=== PATIENT | female | born 1940 | race Caucasian/White ===

== ENCOUNTER 2019-11-06 09:31 | Inpatient (IN) | payer MEDICARE ==
[~2019-11-06] VITALS: Ht 160 cm; Wt 92.1 kg
[~2019-11-06 09:31] MED LIST: ADLT ASA LOW81 MG PO; AMOXICILLIN875 MG OR; AMOXICILLIN875 MG PO; METFORMIN500 MG PO; MULTI VIT PO; OS-CAL 500500 M1 OR; TRILIPIX135 MG OR
[2019-11-06] MEDS ORDERED: JANUVIA100 MG PO (10:58)
[2019-11-06] MEDS ORDERED: METOPROLOL TART50 MG PO (10:58)
[2019-11-06] MEDS ORDERED: LEVOTHYROXIN50 MC1 PO (10:58)
[2019-11-06] MEDS ORDERED: DICYCLOMINE20 MG PO (11:01)
[2019-11-06] MEDS ORDERED: FISH OIL1 CAP PO (11:01)
[2019-11-13] VITALS (9 sets, daily range): BP systolic 110–159; BP diastolic 53–74
[2019-11-13] MEDS ORDERED: CIPROFLOXACN500 MG PO (10:20)
[2019-11-14 03:37] VITALS: BP 104/62
[2019-11-14 06:13] LABS: HEMATOCRIT 38.4 % (37.0-47.0); HEMOGLOBIN 12.8 g/dl (12.0-16.0); MEAN CELL VOLUME 95.5 fL CALC (80.0-100.0); MEAN CORPUSCULAR HGB 31.8 pG CALC (26.0-32.0); MEAN CORPUSCULAR HGB CONC 33.3 g/L CALC (32.0-36.0); RED BLOOD COUNT 4.02 mill/uL (4.20-5.60); RED CELL DISTRI WIDTH 11.9 % (11.5-15.5)
[2019-11-14 06:27] LABS: ANION GAP 11 (6-22 (CALC)); BUN 13 mg/dL (8-23); BUN/CREATININE RATIO 32 (12-20 (CALC)); CARBON DIOXIDE 25 mmol/l (22-30); CHLORIDE 104 mmol/l (95-108); CREATININE 0.4 mg/dL (0.5-1.0); GFR > 60 ML/MIN (>=60 (CALC)); GFR FOR AFR.AMER. > 60 ML/MIN (>=60 (CALC)); POTASSIUM 3.9 mmol/l (3.5-5.1); SODIUM 136 mmol/l (137-146)
[2019-11-14 07:40] VITALS: BP 106/62
[2019-11-14 10:30] VITALS: BP 97/56
[2019-11-14 14:35] VITALS: BP 109/67
[2019-11-14 18:42] VITALS: BP 122/53
[2019-11-14 23:39] VITALS: BP 119/44
[2019-11-15 03:30] VITALS: BP 101/32
[2019-11-15 06:48] LABS: HEMATOCRIT 35.9 % (37.0-47.0); HEMOGLOBIN 11.8 g/dl (12.0-16.0); MEAN CELL VOLUME 94.7 fL CALC (80.0-100.0); MEAN CORPUSCULAR HGB 31.1 pG CALC (26.0-32.0); MEAN CORPUSCULAR HGB CONC 32.9 g/L CALC (32.0-36.0); RED BLOOD COUNT 3.79 mill/uL (4.20-5.60)
[2019-11-15 07:10] LABS: ANION GAP 10 (6-22 (CALC)); BUN 12 mg/dL (8-23); BUN/CREATININE RATIO 27 (12-20 (CALC)); CARBON DIOXIDE 25 mmol/l (22-30); CHLORIDE 104 mmol/l (95-108); CREATININE 0.5 mg/dL (0.5-1.0); GFR > 60 ML/MIN (>=60 (CALC)); GFR FOR AFR.AMER. > 60 ML/MIN (>=60 (CALC)); MAGNESIUM 1.5 mg/dL (1.6-2.3); POTASSIUM 3.8 mmol/l (3.5-5.1); SODIUM 135 mmol/l (137-146)
[2019-11-15 08:49] VITALS: BP 118/73
== END 2019-11-15 16:10 | disposition home health service (06) | DRG 470 ==
LOC: MS2 11-13 08:33 → OR 11-13 10:00 → MS2 11-15 16:10
PROVIDERS: Internal Medicine; Nurse Practitioner Family; ADMIT Orthopaedic Surgery; ATTEND Orthopaedic Surgery
PROC: 0SRD0J9 Replacement of Left Knee Joint with Synthetic Substitute, Cemented, Open Approach (ICD-10-PCS; principal; 2019-11-13)
DX: M17.12 Unilateral primary osteoarthritis, left knee (principal); N39.0 Urinary tract infection, site not specified; I10 Essential (primary) hypertension; E11.9 Type 2 diabetes mellitus without complications; E78.5 Hyperlipidemia, unspecified; E03.9 Hypothyroidism, unspecified; K59.00 Constipation, unspecified; B96.20 Unspecified Escherichia coli [E. coli] as the cause of diseases classified elsewhere; Z79.4 Long term (current) use of insulin
CPT/HCPCS: J0131; J3475